=== PATIENT | female | born 1965 | race Two or more races ===

== ENCOUNTER 2016-09-16 13:40 | Inpatient (IN) | payer MEDICAID ==
[~2016-09-16] VITALS: Ht 157.5 cm; Wt 59.2 kg
[~2016-09-16 13:40] MED LIST: CHOL400T19 PO; IBUP400T21 PO; TAMO20TA5 PO
[2016-09-16] MEDS ORDERED: SODIUM CHLORIDE 0.9% 1,000 ML IV ONE ×3 (14:23→17:30)
[2016-09-16] MEDS ORDERED: ONDANSETRON HCL 4 MG/2 ML VIAL IV ONE (14:30)
[2016-09-16] MEDS ORDERED: MORPHINE SULFATE 4 MG/ML SYRG IV ONE (14:30)
[2016-09-16 14:38] LABS: Basophils # (auto) 0 uL; Basophils % (auto) 0.6 % (0.0-2.0); CONDITION Y; Eosinophils # (auto) 0.1 uL; Eosinophils % (auto) 0.8 % (0.0-7.0); Hematocrit 33.1 % (36.0-46.0); Hemoglobin 11.2 g/dL (12.2-16.2); Lymphocytes # (auto) 1.6 uL; Lymphocytes % (auto) 20.5 % (10.0-50.0); Mean Corpuscular Hgb Conc. 33.9 g/dL (32.0-36.0); Mean Corpuscular Volume 85.6 fL (80.0-100.0); Mean Platelet Volume 8.1 fL (7.4-10.4); Monocytes # (auto) 0.8 uL; Monocytes % (auto) 9.6 % (0.0-12.0); Neutrophils # (auto) 5.4 uL; Neutrophils % (auto) 68.5 % (37.0-80.0); Platelet Count (auto) 330 10^3/uL (140-450); Red Cell Distribution Width 14.9 % (11.6-16.0); White Blood Cell 7.9 10^3/uL (4.4-10.8)
[2016-09-16 14:56] LABS: Partial Thromboplastin Time 28.9 sec (22.64-33.71); Prothrombin Time 10.9 sec (9.37-12.3)
[2016-09-16 15:11] LABS: Alkaline Phosphatase 149 U/L (45-117); Anion Gap 11 (5-15); Aspartate Aminotransferase 59 U/L (15-37); BUN/Creatinine Ratio 20.4; Bilirubin, Total 0.4 mg/dL (0.2-1.0); Blood Urea Nitrogen 19 mg/dL (7-18); Calcium 8.8 mg/dL (8.5-10.1); Carbon Dioxide 22 mmol/L (21-32); Chloride 103 mmol/L (98-107); GFR African American 82 mL/min; GFR Non-African American 68 mL/min; Glucose 99 mg/dL (74-106); Sodium 136 mmol/L (136-145); Total Protein 8.1 g/dL (6.4-8.2)
[2016-09-16] MEDS ORDERED: cefTRIAXone 1GM/50ML D5W 50 ML IV ONE (17:00)
[2016-09-16] MEDS ORDERED: AZITHROMYCIN 500MG/D5W 250ML 250 ML IV ONE (17:00)
[2016-09-16] MEDS ORDERED: cloNIDine HCL 0.1 MG TAB PO ONE (17:30)
[2016-09-16] MEDS ORDERED: LEVOFLOXACIN 750MG 150 ML IV ONE (17:30)
[2016-09-16] MEDS ORDERED: PROMETHAZINE HCL 25 MG/ML 1ML IV ONE (17:30)
[2016-09-16 18:43] LABS: Urine Bilirubin Negative (Negative); Urine Blood Negative /uL (Negative); Urine Color Yellow (Yellow); Urine Glucose Normal (Normal); Urine Hyaline Cast FEW /lpf (0 - 2); Urine Ketone TRACE (Negative); Urine Mucus FEW (None Seen); Urine Nitrite POSITIVE (Negative); Urine RBC <1 /hpf (0 - 4); Urine Squamous Epithelial Cell FEW /hpf (<5); Urine Urobilinogen Normal (Negative); Urine pH 5.5 (5.0-8.0)
[2016-09-16] MEDS ORDERED: ONDANSETRON HCL 4 MG/2 ML VIAL IV PRN (20:45)
[2016-09-16] MEDS ORDERED: IPRATROPIUM BROM 0.5 MG/2.5ML INH SOL NEB PRN (20:45)
[2016-09-16] MEDS ORDERED: ALBUTEROL SULF 2.5 MG/0.5ML(0.5%) NEB SOLN NEB PRN (20:45)
[2016-09-16] MEDS ORDERED: MORPHINE SULF INJ 2 MG/ML SYRINGE 1ML IV PRN (20:45)
[2016-09-16 21:00] VITALS: BP 114/76
[2016-09-16 22:00] VITALS: BP 114/76
[2016-09-17] VITALS (7 sets, daily range): BP systolic 89–119; BP diastolic 56–77
[2016-09-17] MEDS: IBUPROFEN 400 MG TAB PO SCH ×4 (05:16→18:20)
[2016-09-17 06:03] LABS: Basophils # (auto) 0 uL; Basophils % (auto) 0.6 % (0.0-2.0); CONDITION Y; Eosinophils # (auto) 0.1 uL; Eosinophils % (auto) 2.1 % (0.0-7.0); Hematocrit 31.8 % (36.0-46.0); Hemoglobin 10.5 g/dL (12.2-16.2); Lymphocytes # (auto) 1.4 uL; Lymphocytes % (auto) 22.5 % (10.0-50.0); Mean Corpuscular Volume 88.1 fL (80.0-100.0); Mean Platelet Volume 8.5 fL (7.4-10.4); Monocytes # (auto) 0.7 uL; Monocytes % (auto) 11.1 % (0.0-12.0); Neutrophils % (auto) 63.7 % (37.0-80.0); Platelet Count (auto) 276 10^3/uL (140-450); Red Cell Distribution Width 14.8 % (11.6-16.0); White Blood Cell 6.3 10^3/uL (4.4-10.8)
[2016-09-17 06:34] LABS: BUN/Creatinine Ratio 23.9; Calcium 8.3 mg/dL (8.5-10.1)
[2016-09-17] MEDS: CHOLECALCIFEROL PO SCH (10:00)
[2016-09-17] MEDS: TAMOXIFEN CITR 10 MG TAB PO SCH (10:33)
[2016-09-17] MEDS ORDERED: METH10TA6 PO (10:33)
[2016-09-17] MEDS ORDERED: RIVA20TA PO (10:33)
[2016-09-17] MEDS: LEVOFLOXACIN 750MG 150 ML IV SCH (12:37)
[2016-09-17] MEDS ORDERED: METHIMAZOLE 5 MG TAB PO SCH (14:00)
[2016-09-17] MEDS: RIVAROXABAN 20 MG TAB PO SCH (18:20)
[2016-09-18] VITALS (7 sets, daily range): BP systolic 96–110; BP diastolic 61–80
[2016-09-18 05:40] LABS: Basophils # (auto) 0 uL; Basophils % (auto) 0.3 % (0.0-2.0); CONDITION Y; Eosinophils # (auto) 0.1 uL; Eosinophils % (auto) 1.5 % (0.0-7.0); Hematocrit 35.7 % (36.0-46.0); Hemoglobin 11.7 g/dL (12.2-16.2); Lymphocytes # (auto) 1.6 uL; Lymphocytes % (auto) 20.1 % (10.0-50.0); Mean Corpuscular Hemoglobin 28.6 pg (28.0-32.0); Mean Corpuscular Hgb Conc. 32.8 g/dL (32.0-36.0); Mean Corpuscular Volume 87.3 fL (80.0-100.0); Mean Platelet Volume 8.9 fL (7.4-10.4); Monocytes # (auto) 0.8 uL; Monocytes % (auto) 9.9 % (0.0-12.0); Neutrophils # (auto) 5.3 uL; Neutrophils % (auto) 68.2 % (37.0-80.0); Platelet Count (auto) 332 10^3/uL (140-450); Red Cell Distribution Width 14.9 % (11.6-16.0); White Blood Cell 7.8 10^3/uL (4.4-10.8)
[2016-09-18] MEDS: IBUPROFEN 400 MG TAB PO SCH ×4 (05:48→17:26)
[2016-09-18 06:30] LABS: BUN/Creatinine Ratio 19.5; Calcium 8.3 mg/dL (8.5-10.1); Potassium 4.1 mmol/L (3.5-5.1)
[2016-09-18] MEDS: CHOLECALCIFEROL PO SCH (10:00)
[2016-09-18] MEDS: LEVOFLOXACIN 750MG 150 ML IV SCH (10:22)
[2016-09-18] MEDS: TAMOXIFEN CITR 10 MG TAB PO SCH (10:22)
[2016-09-18 11:39] LABS: Base Excess -1.6 mmol/L (-2.0-2.0); Blood 02Sat 87.9 % (96-100); Blood COHb 0.1 % (0.5-1.5); Blood MetHb 0.3 % (0.0-1.5); HCO3 22.7 mmol/L (22-26.0); HHb 12.1 % (0.0-5.0); MODE RA; O2Hb 87.5 % (94.0-97.0); PCO2 36.9 mmHg (35.0-45.0); PCO2(T) 36.9 mmHg (35.0-45.0); PO2 57.2 mmHg (80.0-100.0); PO2(T) 57.2 mmHg (80.0-100.0); Room 0295T; Sample Type Arterial; pH 7.407 (7.350-7.450)
[2016-09-18] MEDS: RIVAROXABAN 20 MG TAB PO SCH (17:26)
[2016-09-19] VITALS (7 sets, daily range): BP systolic 103–114; BP diastolic 68–71
[2016-09-19] MEDS: IBUPROFEN 400 MG TAB PO SCH ×4 (06:00→18:00)
[2016-09-19 09:40] LABS: Basophils # (auto) 0 uL; Basophils % (auto) 0.5 % (0.0-2.0); CONDITION Y; Eosinophils # (auto) 0.1 uL; Eosinophils % (auto) 0.8 % (0.0-7.0); Hematocrit 33.7 % (36.0-46.0); Hemoglobin 10.9 g/dL (12.2-16.2); Lymphocytes # (auto) 1.2 uL; Lymphocytes % (auto) 15.5 % (10.0-50.0); Mean Corpuscular Hemoglobin 28.4 pg (28.0-32.0); Mean Corpuscular Hgb Conc. 32.5 g/dL (32.0-36.0); Mean Corpuscular Volume 87.5 fL (80.0-100.0); Mean Platelet Volume 8.7 fL (7.4-10.4); Monocytes # (auto) 0.6 uL; Neutrophils % (auto) 75.2 % (37.0-80.0); Platelet Count (auto) 355 10^3/uL (140-450); Red Cell Distribution Width 14.8 % (11.6-16.0)
[2016-09-19] MEDS: TAMOXIFEN CITR 10 MG TAB PO SCH (09:55)
[2016-09-19] MEDS: CHOLECALCIFEROL PO SCH (09:55)
[2016-09-19] MEDS: LEVOFLOXACIN 750MG 150 ML IV SCH (09:55)
[2016-09-19 10:08] LABS: Albumin 2.6 g/dL (3.4-5.0); BUN/Creatinine Ratio 18.5; Bilirubin, Total 0.3 mg/dL (0.2-1.0); Calcium 8.9 mg/dL (8.5-10.1); Potassium 4.2 mmol/L (3.5-5.1); Total Protein 7.5 g/dL (6.4-8.2)
[2016-09-19 11:30] LABS: Allen Test Yes; Base Excess -0.2 mmol/L (-2.0-2.0); Blood 02Sat 87.6 % (96-100); Blood COHb 0.1 % (0.5-1.5); Blood MetHb 0.2 % (0.0-1.5); HCO3 23.1 mmol/L (22-26.0); HHb 12.4 % (0.0-5.0); MODE RA; O2Hb 87.3 % (94.0-97.0); PCO2 33.3 mmHg (35.0-45.0); PCO2(T) 31.9 mmHg (35.0-45.0); PO2 55.4 mmHg (80.0-100.0); PO2(T) 51.7 mmHg (80.0-100.0); Room 0295T; Sample Type Arterial; pH 7.459 (7.350-7.450)
[2016-09-19] MEDS: RIVAROXABAN 20 MG TAB PO SCH (18:00)
[2016-09-20 05:00] VITALS: BP 98/64
[2016-09-20] MEDS: IBUPROFEN 400 MG TAB PO SCH ×2 (06:00)
[2016-09-20 09:07] VITALS: BP 102/71
== END 2016-09-20 10:00 | disposition home or self-care (01) | DRG 139 ==
LOC: ER 13:42 → TELE 13:43 → TELE-WESTW 20:45 → WEST WING 09-20 00:03
PROVIDERS: ADMIT Nurse Practitioner Acute Care; ATTEND Internal Medicine
DX: J18.9 Pneumonia, unspecified organism (principal); C78.00 Secondary malignant neoplasm of unspecified lung; J90 Pleural effusion, not elsewhere classified; E44.1 Mild protein-calorie malnutrition; I10 Essential (primary) hypertension; Z90.11 Acquired absence of right breast and nipple; Z85.3 Personal history of malignant neoplasm of breast; Z86.711 Personal history of pulmonary embolism; E03.9 Hypothyroidism, unspecified; K76.9 Liver disease, unspecified; Z82.49 Family history of ischemic heart disease and other diseases of the circulatory system; Z83.3 Family history of diabetes mellitus; Z90.10 Acquired absence of unspecified breast and nipple; Z71.89 Other specified counseling; Z68.23 Body mass index [BMI] 23.0-23.9, adult
CPT/HCPCS: 36415; 36600; 71010; 74176; 80048; 80053; 81001; 82805; 84146; 84484; 85025; 85610; 85730; 87040; 87086; 87088; 87186; 93971; 96361; 96365; 96367; 96375; J0696; J1956; J2405